=== PATIENT | female | born 1935 | race Caucasian/White ===

== ENCOUNTER 2019-09-10 10:18 | Emergency (ER) | payer MEDICARE, OTHER ==
[~2019-09-10] VITALS: Ht 154.9 cm; Wt 39.0 kg
[2019-09-10 10:58] LABS: WHITE BLOOD COUNT 6.5 X10'3 (4.5-11.0)
[2019-09-10 11:00] LABS: HEMATOCRIT 41.9 % (35.0-45.0); HEMOGLOBIN 13.7 g/dl (12.0-16.0); MEAN CORPUSCULAR HEMOGLOBIN 26.5 PG (27.0-31.0); MEAN CORPUSCULAR HGB CONC 32.6 g/dL (33.0-36.5); MEAN CORPUSCULAR VOLUME 81.4 FL (78-98); PLATELET COUNT 268 X10'3 (140-440); RED BLOOD COUNT 5.15 X10'6 (4.20-5.60); RED CELL DISTRIBUTION WIDTH 16.4 % (11.5-14.5)
--- NOTE | 2019-09-10 11:02 | NUR ---
MARIBEL Gimenez at bedside.
[2019-09-10 11:10] LABS: ALANINE AMINOTRANSFERASE 16 U/L (12-78); ALBUMIN 3.7 G/DL (3.4-5.0); ALBUMIN/GLOBULIN RATIO 0.8 (1.1-1.5); ALKALINE PHOSPHATASE 81 IU/L (46-116); ANION GAP 8 (8-16); ASPARTATE AMINO TRANSFERASE 18 U/L (10-37); BILIRUBIN,TOTAL 0.3 MG/DL (0.1-1.0); BLOOD UREA NITROGEN 18 MG/DL (7-18); BUN/CREATININE RATIO 22.5 (6.6-38.0); CHLORIDE 105 MMOL/L (99-107); GLUCOSE 112 MG/DL (70-104); PARTIAL THROMBOPLASTIN TIME 29 SECONDS (22-32); POTASSIUM 3.7 MMOL/L (3.5-5.1); SODIUM 142 MMOL/L (135-145); TOTAL CARBON DIOXIDE 28.9 MMOL/L (24-32); TOTAL PROTEIN 8.1 G/DL (6.4-8.2); eGFR 69 ML/MIN
[2019-09-10 11:24] LABS: TOTAL CELLS COUNTED 100
[2019-09-10 11:25] LABS: PLATELET ESTIMATE NORMAL
[2019-09-10 12:16] VITALS: BP 154/81
== END 2019-09-10 12:19 | disposition home or self-care (01) ==
LOC: ER 10:19
DX: R07.89 Other chest pain (principal); M79.622 Pain in left upper arm; G89.29 Other chronic pain; I48.91 Unspecified atrial fibrillation; I25.10 Atherosclerotic heart disease of native coronary artery without angina pectoris; I25.2 Old myocardial infarction; J44.9 Chronic obstructive pulmonary disease, unspecified; Z88.8 Allergy status to other drugs, medicaments and biological substances
CPT/HCPCS: 71045; 80053; 84484; 85025; 85610; 85730; 93005; 99285

== ENCOUNTER 2020-08-27 13:38 | Inpatient (IN) | payer MEDICARE, OTHER ==
[~2020-08-27] VITALS: Ht 157.5 cm; Wt 37.7 kg
--- NOTE | 2020-08-27 14:37 | NUR ---
patient went to [facility] yesterday for elevated BP. patient denies taking any bp medication. patietn is sinus arrythmia. patient complaint is dizziness and nausea. patient and came today for re-evaluation. want to wait to see md until iv started.
[2020-08-27 14:38] LABS: BASOPHILS # (AUTO) 0.1 X10'3 (0-0.2); BASOPHILS % (AUTO) 1.8 % (0-1); EOSINOPHILS % (AUTO) 0.3 % (0-6); HEMATOCRIT 28.6 % (35.0-45.0); HEMOGLOBIN 8.6 g/dl (12.0-16.0); LYMPHOCYTES # (AUTO) 0.6 X10'3 (1.1-4.8); LYMPHOCYTES % (AUTO) 10.3 % (21-51); MEAN CORPUSCULAR HEMOGLOBIN 21.7 PG (27.0-31.0); MEAN CORPUSCULAR HGB CONC 30.1 g/dL (33.0-36.5); MEAN CORPUSCULAR VOLUME 72.2 FL (78-98); MEAN PLATELET VOLUME 7.8 FL (7.4-10.4); MONOCYTES # (AUTO) 0.4 X10'3 (0-0.9); MONOCYTES % (AUTO) 6.6 % (2-12); NEUTROPHILS # (AUTO) 4.8 X10'3 (1.8-7.7); PLATELET COUNT 299 X10'3 (140-440); RED BLOOD COUNT 3.96 X10'6 (4.20-5.60); WHITE BLOOD COUNT 5.9 X10'3 (4.5-11.0)
[2020-08-27] MEDS ORDERED: ondansetron/PF 4mg/2ml inj IV ONE (14:50)
[2020-08-27 14:57] LABS: ALANINE AMINOTRANSFERASE 15 U/L (12-78); ALBUMIN 3.5 G/DL (3.4-5.0); ALBUMIN/GLOBULIN RATIO 1.1 (1.1-1.5); ALKALINE PHOSPHATASE 63 IU/L (46-116); ANION GAP 10 (8-16); ASPARTATE AMINO TRANSFERASE 10 U/L (10-37); BILIRUBIN,TOTAL 0.4 MG/DL (0.1-1.0); BLOOD UREA NITROGEN 15 MG/DL (7-18); BUN/CREATININE RATIO 21.4 (6.6-38.0); CALCIUM 9.3 MG/DL (8.5-10.1); CHLORIDE 105 MMOL/L (99-107); GLUCOSE 117 MG/DL (70-104); POTASSIUM 4.3 MMOL/L (3.5-5.1); SODIUM 142 MMOL/L (135-145); TOTAL CARBON DIOXIDE 27.4 MMOL/L (24-32); TOTAL PROTEIN 6.8 G/DL (6.4-8.2); eGFR 80 ML/MIN
[2020-08-27 15:12] LABS: PARTIAL THROMBOPLASTIN TIME 25 SECONDS (22-32)
[2020-08-27] MEDS ORDERED: potassium Cl 40MEQ/1/2NS 520ml 520 ML IV PRN ×2 (16:35)
[2020-08-27] MEDS ORDERED: magnesium 2GM in 50ml NS 50 ML IV PRN (16:35)
[2020-08-27] MEDS: normal saline 1000ml 1,000 ML IV SCH ×2 (16:35→20:03)
[2020-08-27] MEDS ORDERED: magnesium Cl slow-release 64mg tablet PO PRN (16:35)
[2020-08-27] MEDS ORDERED: morphine 2 MG/ML inj. syringe IV PRN (16:35)
[2020-08-27] MEDS ORDERED: potassium Cl 20 mEq SR tablet PO PRN ×2 (16:35)
[2020-08-27] MEDS ORDERED: magnesium 4gm in 100ml NS 100 ML IV PRN (16:35)
[2020-08-27] MEDS ORDERED: acetaminophen 325mg tablet PO PRN ×2 (16:35)
[2020-08-27] MEDS ORDERED: CLOP75TA34 PO (17:08)
[2020-08-27] MEDS ORDERED: BRIM5DRO3 (17:08)
--- NOTE | 2020-08-27 17:22 | NUR ---
Report called to GANESH Adams
--- NOTE | 2020-08-27 17:27 | NUR ---
Patient in room ED 4. I have received report from Mayi ANDERSEN and had the opportunity to ask questions and assume patient care.
--- NOTE | 2020-08-27 18:02 | NUR ---
Received patient from ER via gurney. 20 gauge in L upper arm infusing at 70mls/hr. PT is alert, oriented and in no acute distress. Complaining of mild dizziness when ambulating to the bed.
[2020-08-27 18:05] VITALS: BP 170/91
--- NOTE | 2020-08-27 18:25 | NUR ---
Problems reprioritized. Patient report given, questions answered & plan of care reviewed with Richa ANDERSEN.
[2020-08-27 19:37] LABS: CLARITY,URINE CLEAR (Clear); COLOR,URINE YELLOW (Yellow); GLUCOSE, URINE NEGATIVE (Neg); KETONES,URINE 40 mg/dl (Neg); LEUKOCYTE ESTERASE ,URINE NEGATIVE (Neg); NITRITES, URINE NEGATIVE (Neg); OCCULT BLOOD,URINE NEGATIVE (Neg); PROTEIN,URINE NEGATIVE (Neg); UROBILINOGEN,URINE 0.2 E.U/dL (0.2-1.0)
[2020-08-27 19:45] LABS: UA COLLECTION TYPE NON-SPECIFIED
[2020-08-27] MEDS: K and/or MAG REPLACEMENT MC SCH (20:00)
[2020-08-27] MEDS: heparin, porcine 5000 units/ml vial SQ SCH (20:00)
[2020-08-27] MEDS: brimonidine 0.2% 5 ML ophthalmic drops EACHEYE SCH (20:03)
[2020-08-27] MEDS: docusate sod 100mg capsule PO SCH (20:03)
[2020-08-27] MEDS ORDERED: temazepam 15mg capsule PO PRN (21:00)
--- NOTE | 2020-08-27 21:00 | NUR ---
PT REFUSED HEPARIN STATING THAT SHE HAD GI BLEED WITH BLOOD THINNER BEFORE. SHE THINKS PLAVIX AND HEPARIN WILL BE TOO MUCH FOR HER.
[2020-08-27 22:00] VITALS: BP 95/54
[2020-08-28] VITALS (9 sets, daily range): BP systolic 88–144; BP diastolic 47–83
[2020-08-28 02:26] LABS: ALANINE AMINOTRANSFERASE 9 U/L (12-78); ALBUMIN 2.9 G/DL (3.4-5.0); ALBUMIN/GLOBULIN RATIO 1.1 (1.1-1.5); ALKALINE PHOSPHATASE 49 IU/L (46-116); ANION GAP 8 (8-16); ASPARTATE AMINO TRANSFERASE 12 U/L (10-37); BILIRUBIN,TOTAL 0.4 MG/DL (0.1-1.0); BLOOD UREA NITROGEN 14 MG/DL (7-18); BUN/CREATININE RATIO 21.5 (6.6-38.0); CALCIUM 8.7 MG/DL (8.5-10.1); CHLORIDE 107 MMOL/L (99-107); CREATININE 0.65 MG/DL (0.40-0.90); GLUCOSE 100 MG/DL (70-104); SODIUM 142 MMOL/L (135-145); TOTAL CARBON DIOXIDE 26.6 MMOL/L (24-32); TOTAL PROTEIN 5.6 G/DL (6.4-8.2); eGFR 87 ML/MIN
[2020-08-28 02:30] LABS: CHOL/HDL RATIO 2.5 (0.00-4.99); CHOLESTEROL 144 MG/DL (0-200); HDL CHOLESTEROL 57 MG/DL (35-60); LDL CHOLESTEROL 77 MG/DL (50-100); MAGNESIUM 1.8 MG/DL (1.5-2.4); TRIGLYCERIDES 77 MG/DL (20-135)
[2020-08-28 02:33] LABS: BASOPHILS # (AUTO) 0.1 X10'3 (0-0.2); BASOPHILS % (AUTO) 1.9 % (0-1); EOSINOPHILS # (AUTO) 0.1 X10'3 (0-0.9); EOSINOPHILS % (AUTO) 1.4 % (0-6); HEMATOCRIT 23.9 % (35.0-45.0); HEMOGLOBIN 7.3 g/dl (12.0-16.0); LYMPHOCYTES # (AUTO) 1.4 X10'3 (1.1-4.8); LYMPHOCYTES % (AUTO) 26.1 % (21-51); MEAN CORPUSCULAR HEMOGLOBIN 21.7 PG (27.0-31.0); MEAN CORPUSCULAR HGB CONC 30.6 g/dL (33.0-36.5); MEAN CORPUSCULAR VOLUME 70.9 FL (78-98); MEAN PLATELET VOLUME 7.9 FL (7.4-10.4); MONOCYTES # (AUTO) 0.6 X10'3 (0-0.9); MONOCYTES % (AUTO) 10.6 % (2-12); NEUTROPHILS # (AUTO) 3.1 X10'3 (1.8-7.7); PLATELET COUNT 266 X10'3 (140-440); RED BLOOD COUNT 3.37 X10'6 (4.20-5.60); RED CELL DISTRIBUTION WIDTH 16.9 % (11.5-14.5); WHITE BLOOD COUNT 5.2 X10'3 (4.5-11.0)
--- NOTE | 2020-08-28 06:29 | NUR ---
Patient in room ORTHO 4008. I have received report from Richa ANDERSEN and had the opportunity to ask questions and assume patient care.
[2020-08-28] MEDS: normal saline 1000ml 1,000 ML IV SCH ×4 (06:53→22:49)
--- NOTE | 2020-08-28 07:05 | NUR ---
echo and carotid paged for studies
[2020-08-28] MEDS: brimonidine 0.2% 5 ML ophthalmic drops EACHEYE SCH ×2 (07:34→19:15)
[2020-08-28] MEDS: pantoprazole 40mg Tablet.DR PO SCH (07:34)
[2020-08-28] MEDS: clopidogrel 75mg tablet PO SCH (07:34)
[2020-08-28] MEDS: docusate sod 100mg capsule PO SCH ×2 (07:34→19:15)
[2020-08-28] MEDS: heparin, porcine 5000 units/ml vial SQ SCH ×2 (07:39→19:11)
--- NOTE | 2020-08-28 07:42 | NUR ---
Physical therapy working with patient and performed orthostatic vs. From sitting to standing pt dropped from 144 systolic to 107.
[2020-08-28] MEDS: K and/or MAG REPLACEMENT MC SCH ×2 (08:00→19:11)
[2020-08-28 09:25] LABS: % IRON SATURATION 4 % (11-46); IRON 10 UG/DL (49-151); TOTAL IRON BINDING CAPACITY 264 UG/DL (259-388)
[2020-08-28 09:40] LABS: FERRITIN 8 NG/ML (8-252)
--- NOTE | 2020-08-28 14:35 | NUR ---
promotional table spacer PAGER ID: [phone] MESSAGE: [phone]- Jake. Do you want to start a statin? LDL 77. Thanks, Karie ext [phone]
--- NOTE | 2020-08-28 14:40 | NUR ---
Low BMI trigger: Pt BMI 15.2 pending scaled wt this admit. Current non-scaled wt 37.73kg and ht 62in. w/ prior admit last August reported wt 39kg and ht 61in. per EMR. Pt admit DX benign positional vertigo PO 100% recent regular diet meeting needs. Pt appears age-appropriate and well-developed/well-nourished per MD notes w/ no edema/wounds present per EMR. Also, pt reports no wt or appetite loss this admit per malnutrition screen. Likely maintains stable underweight status at baseline. GILLIAN d/w RN regarding scaled wt this admit for more accurate wt record. To provide initial assessment on above date. Addendum: 08/28/20 at [address] Amended: Links added.
--- NOTE | 2020-08-28 15:43 | NUR ---
PAGER ID: [phone] MESSAGE: [id number] Jake Iron infusion? [id number] PATSY
[2020-08-28] MEDS ORDERED: IRON,CARBONYL (45 MG ELEMENTAL IRON) SR.TABLET PO SCH (15:50)
[2020-08-28] MEDS ORDERED: FERROUS SULFATE 142 MG TABLET.ER (45mg elemental) PO SCH (15:59)
--- NOTE | 2020-08-28 16:18 | NUR ---
Ferrous sulfate order put in wrong by pharmacy. spoke with pharmacist to get it fixed to the 1 tablet it was intended to be. Administered at 1618 1 tablet of 142mg.
--- NOTE | 2020-08-28 18:16 | NUR ---
Problems reprioritized. Patient report given, questions answered & plan of care reviewed with Richa ANDERSEN.
--- NOTE | 2020-08-28 18:27 | NUR ---
Patient in room ORTHO 4008. I have received report from GANESH GUTIERREZ AND GANESH GARNER and had the opportunity to ask questions and assume patient care.
[2020-08-29] VITALS (8 sets, daily range): BP systolic 89–168; BP diastolic 57–94
--- NOTE | 2020-08-29 06:16 | NUR ---
Patient in room ORTHO 4008. I have received report from Richa ANDERSEN and had the opportunity to ask questions and assume patient care.
--- NOTE | 2020-08-29 06:19 | NUR ---
Problems reprioritized. Patient report given, questions answered & plan of care reviewed with GANESH GUTIERREZ.
[2020-08-29] MEDS: pantoprazole 40mg Tablet.DR PO SCH (07:23)
[2020-08-29] MEDS: docusate sod 100mg capsule PO SCH ×2 (07:23→19:08)
[2020-08-29] MEDS: clopidogrel 75mg tablet PO SCH (07:23)
[2020-08-29] MEDS: FERROUS SULFATE 142 MG TABLET.ER (45mg elemental) PO SCH (07:23)
[2020-08-29] MEDS: brimonidine 0.2% 5 ML ophthalmic drops EACHEYE SCH ×2 (07:23→19:08)
[2020-08-29] MEDS: K and/or MAG REPLACEMENT MC SCH ×2 (08:00→20:00)
[2020-08-29] MEDS: heparin, porcine 5000 units/ml vial SQ SCH ×2 (08:00→20:00)
[2020-08-29 08:18] LABS: BASOPHILS # (AUTO) 0.1 X10'3 (0-0.2); HEMOGLOBIN 7.6 g/dl (12.0-16.0); LYMPHOCYTES # (AUTO) 1.1 X10'3 (1.1-4.8); MEAN CORPUSCULAR HEMOGLOBIN 21.7 PG (27.0-31.0); MONOCYTES # (AUTO) 0.7 X10'3 (0-0.9); MONOCYTES % (AUTO) 13.8 % (2-12); NEUTROPHILS # (AUTO) 2.8 X10'3 (1.8-7.7); WHITE BLOOD COUNT 4.8 X10'3 (4.5-11.0)
[2020-08-29 08:21] LABS: EOSINOPHILS # (AUTO) 0.1 X10'3 (0-0.9); EOSINOPHILS % (AUTO) 2.8 % (0-6); HEMATOCRIT 24.9 % (35.0-45.0); MEAN CORPUSCULAR HGB CONC 30.4 g/dL (33.0-36.5); MEAN CORPUSCULAR VOLUME 71.6 FL (78-98); MEAN PLATELET VOLUME 7.8 FL (7.4-10.4); NEUTROPHILS % (AUTO) 58.4 % (42-75); PLATELET COUNT 261 X10'3 (140-440); RED BLOOD COUNT 3.47 X10'6 (4.20-5.60); RED CELL DISTRIBUTION WIDTH 17.2 % (11.5-14.5)
[2020-08-29 08:28] LABS: ALANINE AMINOTRANSFERASE 13 U/L (12-78); ALBUMIN 2.9 G/DL (3.4-5.0); ALKALINE PHOSPHATASE 48 IU/L (46-116); ANION GAP 8 (8-16); ASPARTATE AMINO TRANSFERASE 9 U/L (10-37); BILIRUBIN,TOTAL 0.2 MG/DL (0.1-1.0); BLOOD UREA NITROGEN 11 MG/DL (7-18); CALCIUM 8.4 MG/DL (8.5-10.1); CHLORIDE 111 MMOL/L (99-107); CREATININE 0.58 MG/DL (0.40-0.90); GLUCOSE 90 MG/DL (70-104); MAGNESIUM 1.8 MG/DL (1.5-2.4); POTASSIUM 3.5 MMOL/L (3.5-5.1); SODIUM 146 MMOL/L (135-145); TOTAL CARBON DIOXIDE 27.2 MMOL/L (24-32); TOTAL PROTEIN 5.7 G/DL (6.4-8.2); eGFR > 90 ML/MIN
[2020-08-29] MEDS: meclizine 12.5mg tablet PO PRN ×2 (11:03→19:08)
[2020-08-29] MEDS: normal saline 1000ml 1,000 ML IV SCH ×2 (11:29→11:57)
--- NOTE | 2020-08-29 18:15 | NUR ---
RECEIVED REPORT FROM MARVA ANDERSEN AND ASSUMED PATIENT CARE Addendum: 08/29/20 at 1829 by Elizabet Wade RN please disregard. wrong patient.
--- NOTE | 2020-08-29 18:30 | NUR ---
Patient in room ORTHO 4008. I have received report from GANESH GUTIERREZ AND GANESH GARNER and had the opportunity to ask questions and assume patient care.
--- NOTE | 2020-08-29 18:33 | NUR ---
Problems reprioritized. Patient report given, questions answered & plan of care reviewed with Richa ANDERSEN.
[2020-08-30] MEDS: normal saline 1000ml 1,000 ML IV SCH ×3 (00:38→07:48)
[2020-08-30 06:00] VITALS: BP 156/89
--- NOTE | 2020-08-30 06:49 | NUR ---
Patient in room ORTHO 4008. I have received report from Ayesha Churchill and had the opportunity to ask questions and assume patient care.
--- NOTE | 2020-08-30 07:01 | NUR ---
Patient in room ORTHO 4008. I have received report from GANESH Chaudhry and had the opportunity to ask questions and assume patient care. Ahmet Huerta RN will provide care for pt. I will monitor all care and assist when needed.
[2020-08-30] MEDS: HYDROcodone/acetaminophen 5mg/325mg tablet PO PRN ×2 (07:18→14:23)
[2020-08-30] MEDS: pantoprazole 40mg Tablet.DR PO SCH (07:20)
[2020-08-30] MEDS: docusate sod 100mg capsule PO SCH ×2 (07:20→19:42)
[2020-08-30] MEDS: FERROUS SULFATE 142 MG TABLET.ER (45mg elemental) PO SCH (07:20)
[2020-08-30] MEDS: clopidogrel 75mg tablet PO SCH (07:20)
[2020-08-30] MEDS: brimonidine 0.2% 5 ML ophthalmic drops EACHEYE SCH ×2 (07:22→19:42)
[2020-08-30 07:32] LABS: BASOPHILS # (AUTO) 0.1 X10'3 (0-0.2); EOSINOPHILS # (AUTO) 0.2 X10'3 (0-0.9); HEMOGLOBIN 7.6 g/dl (12.0-16.0); MEAN PLATELET VOLUME 7.8 FL (7.4-10.4)
[2020-08-30 07:34] LABS: EOSINOPHILS % (AUTO) 4.7 % (0-6); HEMATOCRIT 24.9 % (35.0-45.0); MEAN CORPUSCULAR HEMOGLOBIN 21.6 PG (27.0-31.0); MEAN CORPUSCULAR HGB CONC 30.4 g/dL (33.0-36.5); MEAN CORPUSCULAR VOLUME 71.1 FL (78-98); MONOCYTES # (AUTO) 0.6 X10'3 (0-0.9); MONOCYTES % (AUTO) 13.9 % (2-12); NEUTROPHILS # (AUTO) 2.6 X10'3 (1.8-7.7); NEUTROPHILS % (AUTO) 56.9 % (42-75); PLATELET COUNT 269 X10'3 (140-440); RED CELL DISTRIBUTION WIDTH 16.7 % (11.5-14.5); WHITE BLOOD COUNT 4.5 X10'3 (4.5-11.0)
[2020-08-30 07:37] LABS: BASOPHILS % (AUTO) 2.2 % (0-1)
[2020-08-30 07:53] LABS: ALANINE AMINOTRANSFERASE 12 U/L (12-78); ALBUMIN 2.9 G/DL (3.4-5.0); ALKALINE PHOSPHATASE 49 IU/L (46-116); ANION GAP 7 (8-16); ASPARTATE AMINO TRANSFERASE 8 U/L (10-37); BILIRUBIN,TOTAL 0.2 MG/DL (0.1-1.0); BLOOD UREA NITROGEN 11 MG/DL (7-18); BUN/CREATININE RATIO 20.4 (6.6-38.0); CALCIUM 8.1 MG/DL (8.5-10.1); CHLORIDE 111 MMOL/L (99-107); CREATININE 0.54 MG/DL (0.40-0.90); GLUCOSE 89 MG/DL (70-104); MAGNESIUM 1.9 MG/DL (1.5-2.4); POTASSIUM 3.2 MMOL/L (3.5-5.1); SODIUM 146 MMOL/L (135-145); TOTAL CARBON DIOXIDE 28.4 MMOL/L (24-32); TOTAL PROTEIN 5.8 G/DL (6.4-8.2); eGFR > 90 ML/MIN
[2020-08-30 08:00] VITALS: BP_SYST 123; BP_SYST 124; BP_SYST 133; BP_DIAS 65; BP_DIAS 69
[2020-08-30] MEDS: heparin, porcine 5000 units/ml vial SQ SCH ×2 (08:00→19:43)
[2020-08-30] MEDS: K and/or MAG REPLACEMENT MC SCH ×2 (08:53→19:42)
[2020-08-30 10:00] VITALS: BP 117/61
--- NOTE | 2020-08-30 10:17 | NUR ---
Page Sent PAGER ID: [phone] MESSAGE: JONY 5199-RE: CLAUDIA RENTERIA [phone]...PTS SIG OTHER/CAREGIVER IS HERE AND HAS SOME QUESTIONS FOR YOU. [phone].
[2020-08-30 14:00] VITALS: BP 130/67
[2020-08-30] MEDS: acyclovir 200 MG capsule PO SCH ×2 (14:22→19:42)
[2020-08-30] MEDS ORDERED: magnesium hydroxide 30ml (MOM) UD suspension PO PRN (15:50)
[2020-08-30 18:00] VITALS: BP 165/86
--- NOTE | 2020-08-30 18:00 | NUR ---
RECEIVED REPORT AND ASSUMED PATIENT CARE
--- NOTE | 2020-08-30 18:22 | NUR ---
Problems reprioritized. Patient report given, questions answered & plan of care reviewed with Mike ANDERSEN.
--- NOTE | 2020-08-30 18:46 | NUR ---
Orientee documentation: I have reviewed and agree with all interventions, assessments performed and documented by GANESH Huerta.
[2020-08-30] MEDS: meclizine 12.5mg tablet PO PRN (19:42)
[2020-08-30 22:00] VITALS: BP 115/61
[2020-08-31] MEDS: acyclovir 200 MG capsule PO SCH ×4 (04:00→19:44)
[2020-08-31 06:52] LABS: BASOPHILS # (AUTO) 0.1 X10'3 (0-0.2); BASOPHILS % (AUTO) 1.8 % (0-1); EOSINOPHILS # (AUTO) 0.2 X10'3 (0-0.9); HEMATOCRIT 25.1 % (35.0-45.0); HEMOGLOBIN 7.7 g/dl (12.0-16.0); LYMPHOCYTES # (AUTO) 0.8 X10'3 (1.1-4.8); LYMPHOCYTES % (AUTO) 15.4 % (21-51); MEAN CORPUSCULAR HEMOGLOBIN 21.7 PG (27.0-31.0); MEAN CORPUSCULAR HGB CONC 30.5 g/dL (33.0-36.5); MEAN CORPUSCULAR VOLUME 71.2 FL (78-98); MEAN PLATELET VOLUME 7.6 FL (7.4-10.4); MONOCYTES # (AUTO) 0.7 X10'3 (0-0.9); MONOCYTES % (AUTO) 12.7 % (2-12); NEUTROPHILS # (AUTO) 3.6 X10'3 (1.8-7.7); NEUTROPHILS % (AUTO) 67.1 % (42-75); PLATELET COUNT 266 X10'3 (140-440); RED BLOOD COUNT 3.53 X10'6 (4.20-5.60); RED CELL DISTRIBUTION WIDTH 17.2 % (11.5-14.5); WHITE BLOOD COUNT 5.3 X10'3 (4.5-11.0)
[2020-08-31 06:56] LABS: ALANINE AMINOTRANSFERASE 14 U/L (12-78); ALBUMIN 2.9 G/DL (3.4-5.0); ALKALINE PHOSPHATASE 51 IU/L (46-116); ANION GAP 6 (8-16); ASPARTATE AMINO TRANSFERASE 8 U/L (10-37); BILIRUBIN,TOTAL 0.2 MG/DL (0.1-1.0); BLOOD UREA NITROGEN 12 MG/DL (7-18); BUN/CREATININE RATIO 21.1 (6.6-38.0); CALCIUM 8.5 MG/DL (8.5-10.1); CHLORIDE 110 MMOL/L (99-107); CREATININE 0.57 MG/DL (0.40-0.90); GLUCOSE 94 MG/DL (70-104); MAGNESIUM 2.1 MG/DL (1.5-2.4); POTASSIUM 3.9 MMOL/L (3.5-5.1); SODIUM 144 MMOL/L (135-145); TOTAL CARBON DIOXIDE 28.1 MMOL/L (24-32); TOTAL PROTEIN 5.9 G/DL (6.4-8.2); eGFR > 90 ML/MIN
[2020-08-31 07:00] VITALS: BP 154/84
--- NOTE | 2020-08-31 07:00 | NUR ---
Patient in room ORTHO 4008. I have received report from Elizabet ANDERSEN and had the opportunity to ask questions and assume patient care.
[2020-08-31] MEDS: clopidogrel 75mg tablet PO SCH (07:24)
[2020-08-31] MEDS: docusate sod 100mg capsule PO SCH ×2 (07:24→19:44)
[2020-08-31] MEDS: pantoprazole 40mg Tablet.DR PO SCH (07:24)
[2020-08-31] MEDS: FERROUS SULFATE 142 MG TABLET.ER (45mg elemental) PO SCH (07:24)
[2020-08-31] MEDS: HYDROcodone/acetaminophen 5mg/325mg tablet PO PRN (07:26)
[2020-08-31] MEDS: heparin, porcine 5000 units/ml vial SQ SCH ×2 (07:30→20:00)
[2020-08-31] MEDS: prednisone 10mg tablet PO SCH (07:35)
[2020-08-31] MEDS: ondansetron/PF 4mg/2ml inj IV PRN (07:38)
--- NOTE | 2020-08-31 07:44 | NUR ---
PATIENT C/O NAUSEA AND PAIN 6/10 IN RIGHT EAR AND FACE. MEDICATED WITH nORCO AND ZOFRAN AMBULATED WITH PT 300FT SEE NOTE.
[2020-08-31 08:00] VITALS: BP_SYST 124; BP_SYST 141; BP_SYST 146; BP_DIAS 81; BP_DIAS 88; BP_DIAS 97
[2020-08-31] MEDS: K and/or MAG REPLACEMENT MC SCH ×2 (08:00→20:00)
[2020-08-31] MEDS: brimonidine 0.2% 5 ML ophthalmic drops EACHEYE SCH ×2 (08:00→19:43)
[2020-08-31] MEDS ORDERED: normal saline 500ml IV soln 500 ML IV ONE (09:10)
[2020-08-31] MEDS ORDERED: PRED10TA PO (09:38)
[2020-08-31] MEDS ORDERED: MECL-226 PO (09:38)
[2020-08-31] MEDS ORDERED: ACYC200C PO (09:38)
[2020-08-31] MEDS ORDERED: FERR142T7 PO (09:38)
[2020-08-31] MEDS ORDERED: PANT40TA54 PO (09:38)
[2020-08-31] MEDS ORDERED: bisacodyl 10mg suppository rectal RC STA (09:45)
[2020-08-31] MEDS ORDERED: DOCU-148 PO (09:50)
[2020-08-31] MEDS ORDERED: POLY119P2 PO (09:50)
[2020-08-31 10:00] VITALS: BP 90/55
[2020-08-31] MEDS ORDERED: magnesium citrate 296ml oral solution PO ONE (11:30)
[2020-08-31] MEDS ORDERED: mineral oil 133ml enema RC PRN (11:30)
--- NOTE | 2020-08-31 11:30 | NUR ---
patient seen by Dr forbes suppository ordered for constipation. no effect. Dr forbes repaged further bowel prep ordered. will continue to monitor. significant other present
--- NOTE | 2020-08-31 13:00 | NUR ---
mineral oil enema given minimal result will continue to monitor
[2020-08-31 14:00] VITALS: BP 145/77
--- NOTE | 2020-08-31 14:40 | NUR ---
Initial: Pt admit DX vertigo, iron deficiency anemia, and advanced to regular diet per [employer] recs. 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 Likely meeting minimum needs using IBW w/ current PO since pending scaled wt this admit. RD recommended f/u [employer] BSS given new changes; MD notified. LBM 08/26 receiving routine colace as well as iron but also refusing additional bowel care at this time per EMR. Power pudding BIDLD added to meals to aid BM; dietary notified. Will continue to monitor. Rec: 1. continue regular diet; modification per [employer] recs given new onset de la rosa's palsy per MD 2. monitor for ONS needs if PO declines 3. routine bowel care; power pudding BIDLD to aid regularity 4. scaled wt this admit Addendum: 08/31/20 at [address] Amended: Links added.
--- NOTE | 2020-08-31 15:45 | NUR ---
patient given mag citrate will continue to monitor
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
[2020-08-31 17:00] VITALS: BP 131/73
--- NOTE | 2020-08-31 18:25 | NUR ---
Patient in room ORTHO 4008. I have received report from GANESH Nguyen and had the opportunity to ask questions and assume patient care.
--- NOTE | 2020-08-31 18:31 | NUR ---
Problems reprioritized. Patient report given, questions answered & plan of care reviewed with Jelena ANDERSEN.
[2020-08-31 22:00] VITALS: BP_SYST 102; BP_SYST 111; BP_SYST 96; BP_DIAS 65; BP_DIAS 71; BP_DIAS 74
[2020-08-31] MEDS: mineral oil/petrolatum ophthal oint EACHEYE PRN (22:37)
[2020-09-01] MEDS: mineral oil/petrolatum ophthal oint EACHEYE PRN ×3 (01:49→12:04)
[2020-09-01] MEDS: acyclovir 200 MG capsule PO SCH ×2 (01:49→08:09)
[2020-09-01] MEDS: HYDROcodone/acetaminophen 5mg/325mg tablet PO PRN (05:53)
[2020-09-01] MEDS: ondansetron/PF 4mg/2ml inj IV PRN (05:54)
[2020-09-01 06:00] VITALS: BP 151/86
--- NOTE | 2020-09-01 06:38 | NUR ---
Problems reprioritized. Patient report given, questions answered & plan of care reviewed with GANESH Bean.
[2020-09-01 06:49] LABS: BASOPHILS # (AUTO) 0.1 X10'3 (0-0.2); BASOPHILS % (AUTO) 1.4 % (0-1); EOSINOPHILS # (AUTO) 0.1 X10'3 (0-0.9); EOSINOPHILS % (AUTO) 0.9 % (0-6); HEMOGLOBIN 7.8 g/dl (12.0-16.0); LYMPHOCYTES # (AUTO) 0.8 X10'3 (1.1-4.8); LYMPHOCYTES % (AUTO) 14.1 % (21-51); MEAN CORPUSCULAR HEMOGLOBIN 21.8 PG (27.0-31.0); MEAN CORPUSCULAR HGB CONC 30.2 g/dL (33.0-36.5); MEAN CORPUSCULAR VOLUME 72.1 FL (78-98); MEAN PLATELET VOLUME 7.7 FL (7.4-10.4); MONOCYTES # (AUTO) 0.9 X10'3 (0-0.9); MONOCYTES % (AUTO) 14.6 % (2-12); NEUTROPHILS # (AUTO) 4.1 X10'3 (1.8-7.7); PLATELET COUNT 274 X10'3 (140-440); RED CELL DISTRIBUTION WIDTH 17.3 % (11.5-14.5)
--- NOTE | 2020-09-01 06:52 | NUR ---
Patient in room ORTHO 4008. I have received report from Jelena and had the opportunity to ask questions and assume patient care.
[2020-09-01 07:10] LABS: ALANINE AMINOTRANSFERASE 14 U/L (12-78); ALBUMIN 3.1 G/DL (3.4-5.0); ALKALINE PHOSPHATASE 51 IU/L (46-116); ANION GAP 8 (8-16); ASPARTATE AMINO TRANSFERASE 7 U/L (10-37); BILIRUBIN,TOTAL 0.3 MG/DL (0.1-1.0); BLOOD UREA NITROGEN 16 MG/DL (7-18); BUN/CREATININE RATIO 23.2 (6.6-38.0); CALCIUM 8.7 MG/DL (8.5-10.1); CHLORIDE 108 MMOL/L (99-107); CREATININE 0.69 MG/DL (0.40-0.90); GLUCOSE 90 MG/DL (70-104); MAGNESIUM 2.4 MG/DL (1.5-2.4); POTASSIUM 3.9 MMOL/L (3.5-5.1); SODIUM 144 MMOL/L (135-145); TOTAL CARBON DIOXIDE 28.2 MMOL/L (24-32); TOTAL PROTEIN 6.2 G/DL (6.4-8.2); eGFR 81 ML/MIN
[2020-09-01 08:00] VITALS: BP_SYST 114; BP_SYST 121; BP_SYST 124; BP_DIAS 65; BP_DIAS 70; BP_DIAS 74
[2020-09-01] MEDS: heparin, porcine 5000 units/ml vial SQ SCH (08:00)
[2020-09-01] MEDS: K and/or MAG REPLACEMENT MC SCH (08:00)
[2020-09-01] MEDS: docusate sod 100mg capsule PO SCH (08:10)
[2020-09-01] MEDS: pantoprazole 40mg Tablet.DR PO SCH (08:10)
[2020-09-01] MEDS: prednisone 10mg tablet PO SCH (08:10)
[2020-09-01] MEDS: clopidogrel 75mg tablet PO SCH (08:10)
[2020-09-01] MEDS: FERROUS SULFATE 142 MG TABLET.ER (45mg elemental) PO SCH (08:10)
[2020-09-01 10:00] VITALS: BP 136/49
[2020-09-01] MEDS: brimonidine 0.2% 5 ML ophthalmic drops EACHEYE SCH (10:16)
--- NOTE | 2020-09-01 11:47 | NUR ---
PAGER ID: [phone] MESSAGE: Zuri [phone] - Argenis Joseph - [phone] - Attempted discharge, patient spouse refused until patient receives an Rx for nausea medication. Claims she wont eat if nauseated and will just be right back here.
[2020-09-01] MEDS ORDERED: ONDA4TAB6 PO (11:56)
--- NOTE | 2020-09-01 12:27 | NUR ---
Patient DC alert and oriented with instructions, understanding instructions, with all belongings, in WC, accompanied by floor aid and caregiver to private vehicle to follow up with PCP within 10 days.
--- NOTE | 2020-09-01 12:29 | NUR ---
Orientee documentation: I have reviewed and agree with all interventions, assessments performed and documented by GANESH Keaitng .
== END 2020-09-01 12:25 | disposition home health service (06) | DRG 312 ==
LOC: ER 13:38 → ED HOLD 16:32 → ORTHO 4S 17:51
PROVIDERS: ADMIT Internal Medicine; ATTEND Internal Medicine
DX: I95.1 Orthostatic hypotension (principal); I48.20 Chronic atrial fibrillation, unspecified; I10 Essential (primary) hypertension; G51.0 Bell's palsy; H91.93 Unspecified hearing loss, bilateral; I25.10 Atherosclerotic heart disease of native coronary artery without angina pectoris; D50.9 Iron deficiency anemia, unspecified; J44.9 Chronic obstructive pulmonary disease, unspecified; K59.00 Constipation, unspecified; I25.2 Old myocardial infarction; Z87.891 Personal history of nicotine dependence; Z88.8 Allergy status to other drugs, medicaments and biological substances
CPT/HCPCS: 36415; 70450; 70544; 70551; 71045; 80053; 80061; 81003; 82728; 83540; 83550; 83735; 83880; 84484; 85025; 85610; 85730; 87081; 92508; 92616; 93005; 93306; 93880; 96374; 97116; 97161; 97530; 97535; 99285; G0378; J2270; J2405; J7030; J7040; J7512; J8597

== ENCOUNTER 2021-03-09 11:51 | Inpatient (IN) | payer MEDICARE, OTHER ==
[~2021-03-09] VITALS: Ht 154.9 cm; Wt 38.2 kg
[~2021-03-09 11:51] MED LIST: ACYC200C30 PO; BRIM5DRO3; CLOP75TA34 PO; DOCU-148 PO; FERR142T7 PO; MECL-226 PO; ONDA4TAB6 PO; PANT40TA54 PO; POLY119P2 PO; PRED10TA PO
[2021-03-09] MEDS ORDERED: normal saline 1000ML IV soln IV ONE (12:35)
[2021-03-09] MEDS ORDERED: acetaminophen 325mg tablet PO ONE (13:05)
[2021-03-09 13:55] LABS: BASOPHILS # (AUTO) 0.1 X10'3 (0-0.2); BASOPHILS % (AUTO) 1.4 % (0-1); EOSINOPHILS % (AUTO) 0.4 % (0-6); HEMATOCRIT 37.6 % (35.0-45.0); HEMOGLOBIN 11.9 g/dl (12.0-16.0); LYMPHOCYTES # (AUTO) 0.5 X10'3 (1.1-4.8); LYMPHOCYTES % (AUTO) 12.5 % (21-51); MEAN CORPUSCULAR HEMOGLOBIN 24.4 PG (27.0-31.0); MEAN CORPUSCULAR HGB CONC 31.7 g/dL (33.0-36.5); MEAN CORPUSCULAR VOLUME 77.1 FL (78-98); MEAN PLATELET VOLUME 8.3 FL (7.4-10.4); MONOCYTES # (AUTO) 0.5 X10'3 (0-0.9); MONOCYTES % (AUTO) 11.9 % (2-12); NEUTROPHILS # (AUTO) 3.2 X10'3 (1.8-7.7); NEUTROPHILS % (AUTO) 73.8 % (42-75); PLATELET COUNT 169 X10'3 (140-440); RED BLOOD COUNT 4.88 X10'6 (4.20-5.60); RED CELL DISTRIBUTION WIDTH 23.1 % (11.5-14.5); WHITE BLOOD COUNT 4.3 X10'3 (4.5-11.0)
[2021-03-09 14:02] LABS: ALANINE AMINOTRANSFERASE 20 U/L (12-78); ALBUMIN/GLOBULIN RATIO 0.9 (1.1-1.5); ALKALINE PHOSPHATASE 78 IU/L (46-116); ANION GAP 6 (8-16); ASPARTATE AMINO TRANSFERASE 14 U/L (10-37); BILIRUBIN,TOTAL 0.5 MG/DL (0.1-1.0); BLOOD UREA NITROGEN 23 MG/DL (7-18); BUN/CREATININE RATIO 22.5 (6.6-38.0); CALCIUM 8.8 MG/DL (8.5-10.1); CHLORIDE 104 MMOL/L (99-107); CREATININE 1.02 MG/DL (0.40-0.90); GLUCOSE 88 MG/DL (70-104); POTASSIUM 4.3 MMOL/L (3.5-5.1); SODIUM 138 MMOL/L (135-145); TOTAL CARBON DIOXIDE 27.7 MMOL/L (24-32); TOTAL PROTEIN 6.4 G/DL (6.4-8.2); eGFR 52 ML/MIN
[2021-03-09] MEDS ORDERED: iohexol 350MG/ML 100ml bottle IV ONE (14:24)
--- NOTE | 2021-03-09 15:14 | NUR ---
Per provider, giving only 1L NS.
[2021-03-09 15:15] LABS: ANISOCYTOSIS 3+; ELLIPTOCYTES 1+; HYPOCHROMASIA 1+; MICROCYTOSIS 1+; PLATELET ESTIMATE NORMAL
[2021-03-09] MEDS ORDERED: ondansetron/PF 4mg/2ml inj IV PRN (15:50)
[2021-03-09] MEDS ORDERED: mag hydrox/Alum hydrox/simeth 30ml oral suspension PO PRN (15:50)
[2021-03-09] MEDS ORDERED: REMDESIVIR INJ 200 MG in normal saline 100ml IV soln 60 ML IV ONE (15:50)
[2021-03-09] MEDS ORDERED: magnesium 4gm in 100ml NS 100 ML IV PRN (15:50)
[2021-03-09] MEDS ORDERED: ALBUTEROL INHALER 1 PUFF/90 MCG INHALER IH PRN (15:50)
[2021-03-09] MEDS ORDERED: potassium Cl 20 mEq SR tablet PO PRN ×2 (15:50)
[2021-03-09] MEDS ORDERED: magnesium hydroxide 30ml (MOM) UD suspension PO PRN (15:50)
[2021-03-09] MEDS ORDERED: acetaminophen 325mg tablet PO PRN (15:50)
[2021-03-09] MEDS ORDERED: magnesium 2GM in 50ml NS 50 ML IV PRN (15:50)
[2021-03-09] MEDS ORDERED: potassium Cl 40MEQ/1/2NS 520ml 520 ML IV PRN ×2 (15:50)
[2021-03-09 16:14] LABS: D-DIMER 0.89 MG/L FEU (0-0.50)
[2021-03-09 17:16] LABS: CLARITY,URINE SLIGHTLY CLOUDY (Clear); COLOR,URINE YELLOW (Yellow); UA COLLECTION TYPE CLN CATCH MIDSTREAM
[2021-03-09 17:17] LABS: GLUCOSE, URINE NEGATIVE (Neg); KETONES,URINE NEGATIVE (Neg); LEUKOCYTE ESTERASE ,URINE NEGATIVE (Neg); NITRITES, URINE POSITIVE (Neg); OCCULT BLOOD,URINE TRACE-INTACT (Neg); PROTEIN,URINE NEGATIVE (Neg); UROBILINOGEN,URINE 0.2 E.U/dL (0.2-1.0)
[2021-03-09 17:18] LABS: BACTERIA,URINE 3+ /HPF (Neg); HYALINE CASTS 0-3 /LPF (NEGATIVE); RBC,URINE 0-2 /HPF (0-2); SQUAMOUS EPITHELIAL CELL,UR FEW /LPF (FEW); WBC CLUMPS,URINE FEW /HPF (NEGATIVE)
[2021-03-09] MEDS: K and/or MAG REPLACEMENT MC SCH (17:57)
--- NOTE | 2021-03-09 19:23 | NUR ---
Report given to GANESH Verdugo on the Ortho unit.
--- NOTE | 2021-03-09 19:24 | NUR ---
Patient in room ED 10. I have received report from POT ANNEALER and had the opportunity to ask questions and will assume patient care up[on arrival to the floor. Addendum: 03/09/21 at 1925 by Lucina Baron RN Amended: Links added.
--- NOTE | 2021-03-09 19:30 | NUR ---
Patient in room ED 10. I have received report from Argelia Contreras Rn and had the opportunity to ask questions and will assume patient care upon arrival to the room.. Addendum: 03/09/21 at 1933 by Lucina Baron RN Amended: Links added.
[2021-03-09 19:50] VITALS: BP 126/53
[2021-03-09] MEDS ORDERED: docusate sod 100mg capsule PO SCH (20:00)
[2021-03-09] MEDS: docusate sod 100mg capsule PO SCH ×2 (20:00→21:02)
[2021-03-09] MEDS: enoxaparin 40mg/0.4ml syringe SQ SCH (21:03)
[2021-03-09 22:20] VITALS: BP 94/49
--- NOTE | 2021-03-09 22:20 | NUR ---
PT FRIEND WITH IS PT'S SIGNIFICANT OTHERS DAUGHTER CALLED TO CHECK ON HER. PT GAVE PERMISSION TO GIVE INFO TO HER Patrick AND SET UP [employer] FRIENDS DOGS NAME FOR A PASSWORD TO RELEASE INFO TO. SHE IS AWARE THAT IT IS BETTER TO GIVE INFO TO ONE PERSON AND HAVE THEM RELAY INFO TO THE OTHER FAMILY MEMBERS WITH PT'S PERMISSION.
[2021-03-10 02:18] VITALS: BP 123/60
[2021-03-10] MEDS: brimonidine 0.2% 5 ML ophthalmic drops EACHEYE SCH ×3 (02:29→20:20)
[2021-03-10] MEDS: dexamethasone inj 6 MG in normal saline 50ml IV soln 50 ML IV SCH ×3 (02:34→20:20)
--- NOTE | 2021-03-10 05:38 | NUR ---
pt resting appears comfortable. sats at 95%. NO S&S OF DISTRESS.
[2021-03-10 06:00] VITALS: BP 98/58
--- NOTE | 2021-03-10 06:16 | NUR ---
Problems reprioritized. Patient report given, questions answered & plan of care reviewed with Christen bolton. Addendum: 03/10/21 at 0617 by Lucina Baron RN Amended: Links added.
--- NOTE | 2021-03-10 06:36 | NUR ---
Patient in room ORTHO 4010. I have received report from GANESH Verdugo and had the opportunity to ask questions and assume patient care.
[2021-03-10] MEDS: docusate sod 100mg capsule PO SCH ×2 (07:51→20:00)
[2021-03-10] MEDS: polyethylene glycol 3350 17gm powd pack PO SCH (07:52)
[2021-03-10] MEDS: FERROUS SULFATE 142 MG TABLET.ER (45mg elemental) PO SCH (07:52)
[2021-03-10] MEDS: clopidogrel 75mg tablet PO SCH (07:52)
[2021-03-10] MEDS: K and/or MAG REPLACEMENT MC SCH ×2 (08:00→20:00)
[2021-03-10 08:39] LABS: BASOPHILS % (AUTO) 0.8 % (0-1); EOSINOPHILS # (AUTO) 0.1 X10'3 (0-0.9); EOSINOPHILS % (AUTO) 2.2 % (0-6); HEMATOCRIT 35.5 % (35.0-45.0); HEMOGLOBIN 11.2 g/dl (12.0-16.0); LYMPHOCYTES # (AUTO) 0.9 X10'3 (1.1-4.8); LYMPHOCYTES % (AUTO) 25.7 % (21-51); MEAN CORPUSCULAR HEMOGLOBIN 24.5 PG (27.0-31.0); MEAN CORPUSCULAR HGB CONC 31.5 g/dL (33.0-36.5); MEAN CORPUSCULAR VOLUME 77.8 FL (78-98); MEAN PLATELET VOLUME 8.2 FL (7.4-10.4); MONOCYTES # (AUTO) 0.6 X10'3 (0-0.9); MONOCYTES % (AUTO) 17.3 % (2-12); PLATELET COUNT 145 X10'3 (140-440); RED BLOOD COUNT 4.57 X10'6 (4.20-5.60); RED CELL DISTRIBUTION WIDTH 22.8 % (11.5-14.5); WHITE BLOOD COUNT 3.7 X10'3 (4.5-11.0)
[2021-03-10] MEDS: REMDESIVIR INJ 100 MG in normal saline 100ml IV soln 80 ML IV SCH (09:05)
[2021-03-10 09:06] LABS: ALANINE AMINOTRANSFERASE 18 U/L (12-78); ALBUMIN 2.3 G/DL (3.4-5.0); ALBUMIN/GLOBULIN RATIO 0.7 (1.1-1.5); ALKALINE PHOSPHATASE 67 IU/L (46-116); ANION GAP 2 (8-16); ASPARTATE AMINO TRANSFERASE 12 U/L (10-37); BILIRUBIN,TOTAL 0.3 MG/DL (0.1-1.0); BLOOD UREA NITROGEN 25 MG/DL (7-18); BUN/CREATININE RATIO 41.7 (6.6-38.0); C-REACTIVE PROTEIN 7.91 MG/DL (0.0-0.5); CHLORIDE 107 MMOL/L (99-107); GLUCOSE 65 MG/DL (70-104); MAGNESIUM 1.8 MG/DL (1.5-2.4); POTASSIUM 3.8 MMOL/L (3.5-5.1); SODIUM 138 MMOL/L (135-145); TOTAL CARBON DIOXIDE 28.9 MMOL/L (24-32); TOTAL PROTEIN 5.5 G/DL (6.4-8.2); eGFR > 90 ML/MIN
[2021-03-10 09:13] LABS: D-DIMER 0.68 MG/L FEU (0-0.50)
[2021-03-10 09:45] LABS: ANISOCYTOSIS 3+; ELLIPTOCYTES 1+; MICROCYTOSIS 1+; PLATELET ESTIMATE NORMAL
[2021-03-10 09:46] LABS: BURR CELLS FEW; HYPOCHROMASIA 1+; SCHISTOCYTES FEW
[2021-03-10 10:00] VITALS: BP 119/58
--- NOTE | 2021-03-10 10:32 | NUR ---
Malnutrition/Calorie Count Consults "pt lost wt": Pt admit DX COVID-19, acute respiratory failure, and chronic anemia per EMR. Pt standing scaled wt 38.18kg making BMI 15.9 this admit w/ pt reporting both unsure of wt loss hx as well as 2-13 pounds lost past month per EMR. Pt admit August 2019 chair scaled wt 39kg and recent admit August this year reported wt stable w/ wt hx. Recent admit August pt appeared WD/WN per MD note and this admit pt appears well-developed per MD note. 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 Pt has no significant weakness, no edema, skin intact, and likely maintains stable low wt status at baseline. No mention of calorie count in DO note and pt lacks minimum malnutrition criteria at this time. RD d/w RN regarding liberalizing to regular diet from current heart healthy diet if MD agreeable given age. Will monitor for nutrition intervention needs this admit. Addendum: 03/10/21 at [address] Amended: Links added.
[2021-03-10 14:00] VITALS: BP 117/69
[2021-03-10 17:43] VITALS: BP 151/93
--- NOTE | 2021-03-10 18:09 | NUR ---
Problems reprioritized. Patient report given, questions answered & plan of care reviewed with Hawa Bowens RN.
[2021-03-10] MEDS: CefTRIAXone/D5W-Rocephin 1gm 50 ML IV SCH (18:51)
[2021-03-10] MEDS: enoxaparin 40mg/0.4ml syringe SQ SCH (20:22)
[2021-03-10 22:00] VITALS: BP 143/71
[2021-03-11 02:00] VITALS: BP 130/77
--- NOTE | 2021-03-11 06:05 | NUR ---
Problems reprioritized. Patient report given, questions answered & plan of care reviewed with GANESH Vora.
--- NOTE | 2021-03-11 06:10 | NUR ---
received report from donna garcia rn
[2021-03-11] MEDS: docusate sod 100mg capsule PO SCH (07:51)
[2021-03-11] MEDS: brimonidine 0.2% 5 ML ophthalmic drops EACHEYE SCH (07:52)
[2021-03-11] MEDS: enoxaparin 40mg/0.4ml syringe SQ SCH (07:53)
[2021-03-11] MEDS: clopidogrel 75mg tablet PO SCH (07:56)
[2021-03-11] MEDS: polyethylene glycol 3350 17gm powd pack PO SCH (07:56)
[2021-03-11] MEDS: FERROUS SULFATE 142 MG TABLET.ER (45mg elemental) PO SCH (07:56)
[2021-03-11 08:00] VITALS: BP 152/76
[2021-03-11] MEDS: dexamethasone inj 6 MG in normal saline 50ml IV soln 50 ML IV SCH (08:00)
[2021-03-11] MEDS: K and/or MAG REPLACEMENT MC SCH (08:00)
[2021-03-11] MEDS: CefTRIAXone/D5W-Rocephin 1gm 50 ML IV SCH (08:42)
[2021-03-11 09:10] LABS: BASOPHILS % (AUTO) 0.5 % (0-1); EOSINOPHILS % (AUTO) 0.1 % (0-6); HEMATOCRIT 37.3 % (35.0-45.0); HEMOGLOBIN 11.9 g/dl (12.0-16.0); LYMPHOCYTES # (AUTO) 0.6 X10'3 (1.1-4.8); LYMPHOCYTES % (AUTO) 22.1 % (21-51); MEAN CORPUSCULAR HEMOGLOBIN 24.4 PG (27.0-31.0); MEAN CORPUSCULAR VOLUME 76.2 FL (78-98); MEAN PLATELET VOLUME 8.5 FL (7.4-10.4); MONOCYTES # (AUTO) 0.3 X10'3 (0-0.9); MONOCYTES % (AUTO) 12.7 % (2-12); NEUTROPHILS # (AUTO) 1.7 X10'3 (1.8-7.7); NEUTROPHILS % (AUTO) 64.6 % (42-75); PLATELET COUNT 180 X10'3 (140-440); RED BLOOD COUNT 4.89 X10'6 (4.20-5.60); RED CELL DISTRIBUTION WIDTH 22.7 % (11.5-14.5); WHITE BLOOD COUNT 2.7 X10'3 (4.5-11.0)
[2021-03-11 09:18] LABS: D-DIMER 0.63 MG/L FEU (0-0.50)
[2021-03-11 09:22] LABS: ALANINE AMINOTRANSFERASE 17 U/L (12-78); ALBUMIN 2.4 G/DL (3.4-5.0); ALBUMIN/GLOBULIN RATIO 0.6 (1.1-1.5); ALKALINE PHOSPHATASE 76 IU/L (46-116); ANION GAP 9 (8-16); ASPARTATE AMINO TRANSFERASE 11 U/L (10-37); BILIRUBIN,TOTAL 0.2 MG/DL (0.1-1.0); BLOOD UREA NITROGEN 26 MG/DL (7-18); BUN/CREATININE RATIO 44.1 (6.6-38.0); CALCIUM 8.1 MG/DL (8.5-10.1); CHLORIDE 107 MMOL/L (99-107); CREATININE 0.59 MG/DL (0.40-0.90); GLUCOSE 101 MG/DL (70-104); MAGNESIUM 1.9 MG/DL (1.5-2.4); POTASSIUM 4.2 MMOL/L (3.5-5.1); SODIUM 146 MMOL/L (135-145); TOTAL CARBON DIOXIDE 30.2 MMOL/L (24-32); TOTAL PROTEIN 6.2 G/DL (6.4-8.2); eGFR > 90 ML/MIN
[2021-03-11] MEDS: REMDESIVIR INJ 100 MG in normal saline 100ml IV soln 80 ML IV SCH (09:47)
[2021-03-11 10:14] LABS: ANISOCYTOSIS 3+; HYPOCHROMASIA 1+; MICROCYTOSIS 1+; PLATELET ESTIMATE NORMAL; TOTAL CELLS COUNTED 100
[2021-03-11 10:15] LABS: ELLIPTOCYTES 1+; LARGE PLATELETS FEW; SCHISTOCYTES FEW
[2021-03-11] MEDS ORDERED: CEFD300C3 PO (12:28)
[2021-03-11] MEDS ORDERED: DEC4T PO (12:28)
--- NOTE | 2021-03-11 15:30 | NUR ---
pt d/c with instructions, understanding of instructions and w/all belongings in wheelchair accompanied by nursing staff to private vehicle to isolate at home for one week and f/u w/pcp after being isolated
== END 2021-03-11 15:15 | disposition home or self-care (01) | DRG 177 ==
LOC: ER 11:52 → ED HOLD 15:58 → ORTHO 4S 20:00
PROVIDERS: ADMIT Family Medicine; ATTEND Family Medicine
PROC: XW033E5 Introduction of Remdesivir Anti-infective into Peripheral Vein, Percutaneous Approach, New Technology Group 5 (ICD-10-PCS; principal; 2021-03-09)
PROC: B32T1ZZ Computerized Tomography (CT Scan) of Left Pulmonary Artery using Low Osmolar Contrast (ICD-10-PCS; 2021-03-09)
PROC: B3201ZZ Computerized Tomography (CT Scan) of Thoracic Aorta using Low Osmolar Contrast (ICD-10-PCS; 2021-03-09)
PROC: B32S1ZZ Computerized Tomography (CT Scan) of Right Pulmonary Artery using Low Osmolar Contrast (ICD-10-PCS; 2021-03-09)
DX: U07.1 COVID-19 (principal); J12.82 Pneumonia due to coronavirus disease 2019; J96.01 Acute respiratory failure with hypoxia; J44.0 Chronic obstructive pulmonary disease with (acute) lower respiratory infection; N39.0 Urinary tract infection, site not specified; I95.9 Hypotension, unspecified; D64.9 Anemia, unspecified; B96.20 Unspecified Escherichia coli [E. coli] as the cause of diseases classified elsewhere; I25.10 Atherosclerotic heart disease of native coronary artery without angina pectoris; I48.91 Unspecified atrial fibrillation; N28.9 Disorder of kidney and ureter, unspecified; I25.2 Old myocardial infarction; Z87.891 Personal history of nicotine dependence; Z88.8 Allergy status to other drugs, medicaments and biological substances; Z79.899 Other long term (current) drug therapy; Z82.49 Family history of ischemic heart disease and other diseases of the circulatory system
CPT/HCPCS: 36415; 71045; 71275; 80053; 81001; 83605; 83735; 84145; 85007; 85008; 85025; 85379; 86140; 87040; 87077; 87081; 87088; 87186; 96360; 97161; 97530; 99285; G0378; J0696; J1100; J1650; J7030; Q9967